=== PATIENT | female | born 1995 | race Two or more races ===

== ENCOUNTER → 2018-05-12 | Outpatient (CLI) | payer OTHER ==
--- NOTE | 2018-05-12 13:15 | RAD ---
EXAM: Biophysical profile. HISTORY: Supervision of gestation. TECHNIQUE: Sonographic imaging of a gravid uterus was performed. COMPARISON: None. FINDINGS: There is a twin intrauterine gestation. The twin A is located on a low maternal right and the twin B is located within the high maternal left. Twin A heart rate is 1 heart and 26 bpm. The twin B heart rate is 1 heart and 33 bpm. The cervix is closed and measures 3.9 cm in length. There is normal breathing motion, body motion and tone and there is normal anatomic fluid volume for both twins. The biophysical profiles are both 8/8. There is an anterior placenta. There is no evidence of placenta previa. The twin A biparietal diameter is 6.95 cm, corresponding with 28 weeks and 0 days. The head circumference is 25.48 cm, corresponding with 27 weeks and 5 days. The abdominal circumference is 23.49 cm, corresponding with 27 weeks and 6 days. The femoral length is 5.18 cm, corresponding with 27 weeks and 5 days. The twin A estimated gestational age based on combined ultrasound measurements is 27 weeks and 6 days and the estimated weight is at the 48th percentile. The twin B biparietal diameter is 6.58 cm, corresponding with 26 weeks and 4 days. The head circumference is 24.60 cm, corresponding with 26 weeks and 5 days. The abdominal circumference is 22.15 cm, corresponding with 26 weeks and 4 days. The femoral length is 4.96 cm, corresponding with 26 weeks and 5 days. The twin the estimated gestational age patient combined ultrasound measurements is 26 weeks and 5 days and the estimated weight is at the 34th percentile. IMPRESSION: Twin intrauterine gestation. Both fetuses demonstrate normal heart rates and normal biophysical profiles of 8/8. The estimated weight percentiles are described above. Electronically signed by: Daxa Boyle MD (05/12/2018 1:12 PM) [id number]
== END | disposition home or self-care (01) ==
LOC: US 08:15
PROVIDERS: ATTEND Obstetrics & Gynecology
DX: O09.42 Supervision of pregnancy with grand multiparity, second trimester (principal); Z3A.27 27 weeks gestation of pregnancy; Z3A.26 26 weeks gestation of pregnancy
CPT/HCPCS: 76819

== ENCOUNTER 2018-05-18 09:12 | Observation (INO) | payer OTHER ==
[2018-05-18] MEDS ORDERED: IV RINGERS,LACTATED 500ML 500 ML IV PRN (09:45)
[2018-05-18 11:01] LABS: BILIRUBIN,URINE NEGATIVE (NEG); CLARITY,URINE CLOUDY; COLOR,URINE YELLOW; NITRITE,URINE NEGATIVE (NEG); PROTEIN,URINE NEGATIVE (NEG-TRACE); UROBILINOGEN,URINE 0.2 mg/dL (0.2 mg/dL)
[2018-05-18 11:35] LABS: BACTERIA,URINE MANY /HPF (0-FEW); SQUAMOUS EPITHELIAL CELL,UR MANY /LPF; WBC,URINE >40 /HPF (0-4)
--- NOTE | 2018-05-18 12:14 | RAD ---
Examination: Ultrasound biophysical profile score HISTORY: History of twin gestation Comparison: 05/12/2018. FINDINGS: Cervical length measures 4.3 cm. Twin gestation is identified. A heart rate is 137 bpm. B heart rate is 124 bpm. A: LMP 10/30/2017 Clinical age 28 weeks and 4 days with expected date of delivery 08/06/2018 Ultrasound age is 28 weeks and 6 days with estimated date of delivery by ultrasound 08/04/2018. Estimated weight 1253 g. Cephalic index 82.8 Head circumference to abdominal circumference ratio 1.09. Femur length to biparietal diameter ratio 71.8. Femur length to head circumference 20.0. Femur length to abdominal circumference 21.8. Biparietal diameter measures 7.4 cm corresponding to 29 weeks and 5 days. Head circumference measures 26.5 cm corresponding 28 weeks and 6 days. Abdominal circumference measures 24.3 cm corresponding to 28 weeks and 5 days. Femur length measures 5.3 cm corresponding to 28 weeks and 1 day. tone 2 / 2 breathing 2 / 2 movement 2 / 2 Amniotic fluid index 2 2 Biophysical profile score 8 / 8. Fetus B: LMP 10/30/2017 Clinical age 28 weeks and 4 days with expected date of delivery 08/06/2018. Ultrasound age is 27 weeks and 6 days with estimated date of delivery 08/11/2018. Estimated weight 1105 g Cephalic index is 83.6 Head circumference to abdominal circumference ratio 1.08 Femur length to biparietal diameter 71.0 Femur length abdominal circumference 21.5. Femur length to head circumference 19.9 Biparietal diameter measures 7.1 cm corresponding 28 weeks and 4 days Head circumference measures 25.3 cm corresponding 27 weeks and 4 days. Abdominal circumference measures 23.5 cm corresponding 27 weeks and 6 days. Femur length measures 5.0 cm corresponding to 27 weeks and 1 day. Amniotic fluid index 12.0 tone 2 / 2 breathing 2 / 2 movement 2/2. Amniotic fluid index 2 /2 Biophysical profile score 8 / 8. IMPRESSION: 1. Twin gestation as described above. Normal biophysical profile score. Electronically signed by: Petar Leone MD (05/18/2018 12:11 PM) [place] [id number]
== END 2018-05-18 11:40 | disposition home or self-care (01) ==
LOC: 3 SO LND 09:12
PROVIDERS: ADMIT Obstetrics & Gynecology; ATTEND Obstetrics & Gynecology
DX: O30.003 Twin pregnancy, unspecified number of placenta and unspecified number of amniotic sacs, third trimester (principal); Z3A.28 28 weeks gestation of pregnancy
CPT/HCPCS: 76819; 81001; 87086; G0378; G0379; 59025

== ENCOUNTER 2018-05-25 11:26 | Observation (INO) | payer OTHER | END 2018-05-25 14:36 | disposition home or self-care (01) | LOC: 3 SO LND 11:26 | PROVIDERS: ADMIT Obstetrics & Gynecology; ATTEND Obstetrics & Gynecology | DX: O30.009 Twin pregnancy, unspecified number of placenta and unspecified number of amniotic sacs, unspecified trimester (principal); Z3A.00 Weeks of gestation of pregnancy not specified | CPT/HCPCS: G0378; G0379 ==

== ENCOUNTER → 2018-05-25 | Outpatient (CLI) | payer OTHER ==
--- NOTE | 2018-05-25 12:03 | RAD ---
EXAM: biophysical profile. HISTORY: Supervision of third trimester twin . TECHNIQUE: Sonographic imaging of a gravid uterus was performed. COMPARISON: 05/18/2018. FINDINGS: There is a twin intrauterine . Twin A is on the low maternal right and demonstrates normal breathing motion, body motion and tone and there is a normal amniotic fluid volume of 10.5 cm. This corresponds with a biophysical profile of 8/8. Twin A is in cephalic presentation. There is an anterior placenta without evidence of placenta previa. Twin A demonstrates a heart rate of 116 bpm. Twin B is on the high maternal left and demonstrates normal breathing motion, body motion, and tone and there is a normal anatomic fluid volume of 10.5 cm. This corresponds with a biophysical profile 8/8. Twin A is in breech presentation. There is an anterior placenta without evidence of placenta previa. Twin A demonstrates a heart rate of 133 bpm. The cervix is closed and measures 4.5 cm in length. The twin A biparietal diameter is 7.38 cm, corresponding with 29 weeks and 4 days. The twin A head circumference is 26.69 cm, corresponding with 29 weeks and 1 day. The twin A abdominal circumference is 23.89 cm, corresponding with 28 weeks and 1 day. The twin A femoral length is 5.35 cm, corresponding with 28 weeks and 3 days. The twin B biparietal diameter is 7.33 cm, corresponding with 29 weeks and 3 days. The twin B head circumference is 26.11 cm, corresponding with 28 weeks and 3 day. The twin B abdominal circumference is 24.15 cm, corresponding with 28 weeks and 3 day. The twin B femoral length is 5.29 cm, corresponding with 28 weeks and 1 days. The estimated weight for twin A is 1226 g, corresponding with the 33rd percentile. The estimated weight for twin B is 1219 g, corresponding with the 33rd percentile. The estimated gestational age of twin A is 28 weeks and 6 days and the estimated gestational age of twin B is 28 weeks and 4 days. IMPRESSION: Twin intrauterine gestation, described in detail above. The biophysical profile is 8/8 for both twins. Electronically signed by: Daxa Boyle MD (05/25/2018 12:00 PM) [facility]
== END | disposition home or self-care (01) ==
LOC: US 09:33 → EDSTATUS 10:00 → US 10:03
PROVIDERS: ATTEND Obstetrics & Gynecology
DX: O32.1XX1 Maternal care for breech presentation, fetus 1 (principal); O09.43 Supervision of pregnancy with grand multiparity, third trimester; Z3A.29 29 weeks gestation of pregnancy
CPT/HCPCS: 76819

== ENCOUNTER 2018-06-01 10:28 | Observation (INO) | payer OTHER ==
[2018-06-01] MEDS ORDERED: IV RINGERS,LACTATED 1000ML 1,000 ML IV SCH (11:30)
== END 2018-06-01 11:00 | disposition home or self-care (01) ==
LOC: 3 SO LND 10:28
PROVIDERS: ADMIT Obstetrics & Gynecology; ATTEND Obstetrics & Gynecology
DX: O30.003 Twin pregnancy, unspecified number of placenta and unspecified number of amniotic sacs, third trimester (principal); Z3A.30 30 weeks gestation of pregnancy
CPT/HCPCS: 59025; G0379

== ENCOUNTER 2018-06-07 11:50 | Observation (INO) | payer OTHER ==
--- NOTE | 2018-06-07 14:05 | RAD ---
Biophysical profile score 06/07/2017. There is made to 06/01/2018. CLINICAL INDICATION: Twin gestation Findings: Fetus A is in cephalic presentation, low to the maternal right. Amniotic fluid volume 17.0 cc. breathing 2 out of 2. motion 2 out of 2. tone 2 out of 2. fluid volume 2 out of 2. There is a single placenta for both fetuses which is anterior in location. BPD 8.1 cm for 32 weeks 3 days. HC 20.9 cm for 31 weeks 6 day. AC 28.2 cm for 32 weeks 1 day. FL 5.9 cm for 30 weeks 6 days. Estimated sonographic gestational age of 31 weeks 6 days. EDC 08/03/2018. Estimated weight of 1832 g. Fetus B is in cephalic presentation and located to the maternal left. Amniotic fluid volume 17 cc. breathing 2 out of 2. motion 2 out of 2. tone 2 out of 2. fluid volume 2 out of 2. There is a single placenta and anterior location. BPD 8.0 cm 32 weeks 0 day . HC 27.7 cm 30 weeks 2 days AC 28.4 cm 32 weeks 3 days FL 6.1 cm 31 weeks 6 days Estimated sonographic gestational age of 31 weeks 5 days for an estimated date of delivery of 08/04/2018. Estimated weight of 1882 g. IMPRESSION: Biophysical profile score equals 8 out of 8 for both fetuses. Electronically signed by: Emmett Bardales MD (06/07/2018 2:01 PM) [id number]
== END 2018-06-07 13:25 | disposition home or self-care (01) ==
LOC: 3 SO LND 11:50
PROVIDERS: ADMIT Obstetrics & Gynecology; ATTEND Obstetrics & Gynecology
DX: O30.003 Twin pregnancy, unspecified number of placenta and unspecified number of amniotic sacs, third trimester (principal); Z3A.30 30 weeks gestation of pregnancy
CPT/HCPCS: 76819; G0378; G0379; 59025

== ENCOUNTER 2018-06-20 09:45 | Observation (INO) | payer OTHER ==
[2018-06-20] MEDS ORDERED: IV RINGERS,LACTATED 1000ML 1,000 ML IV SCH (09:56)
--- NOTE | 2018-06-20 12:19 | RAD ---
Ultrasound biophysical profile (twin ), 06/20/2018: HISTORY: High risk twin gestation The fetus termed twin A lies low on the maternal right in a cephalic orientation. The heart rate is 141 bpm. The amniotic fluid index is 11.8. There is a single placenta anteriorly supplying both fetuses. The following biophysical profile scores were obtained for twin A: breathing movements-2 motion-2 tone-2 Amniotic fluid volume-2 Total score-8 out of 8 The fetus termed twin B lies higher on the maternal left in a cephalic orientation. Its heart rate is 135 bpm. The amniotic fluid index is 11.8. The following biophysical profile scores were obtained: breathing movements-2 motion-2 tone-2 Amniotic fluid volume-2 Total score-8 out of 8 Although full surveys were not performed, the available measurements suggest a gestational age of 33-34 weeks for both fetuses. The weights were estimated at 14 pounds and 14-15 ounces. IMPRESSION: The ultrasound component of the biophysical profile score for both fetuses is 8 out of 8. Electronically signed by: Rufus Talbert MD (06/20/2018 12:17 PM) [facility]
== END 2018-06-20 11:36 | disposition home or self-care (01) ==
LOC: 3 SO LND 09:45
PROVIDERS: ADMIT Obstetrics & Gynecology; ATTEND Obstetrics & Gynecology
DX: O30.003 Twin pregnancy, unspecified number of placenta and unspecified number of amniotic sacs, third trimester (principal); Z3A.32 32 weeks gestation of pregnancy
CPT/HCPCS: 76819; G0378; G0379; 59025